=== PATIENT | male | born 1965 | race Two or more races ===

== ENCOUNTER 2017-12-09 20:56 | Inpatient (IN) | payer OTHER ==
[2017-12-09] MEDS ORDERED: LORAZEPAM 0.5 MG TAB PO (21:30)
[2017-12-09] MEDS ORDERED: DOCUSATE SODIUM 100 MG CAP PO (21:30)
[2017-12-09] MEDS ORDERED: NICOTINE POLACRILEX 2 MG GUM BUCCAL (21:30)
[2017-12-09] MEDS ORDERED: ZOLPIDEM 5 MG TAB PO (21:30)
[2017-12-09] MEDS ORDERED: BISACODYL (EC) 5 MG TAB PO (21:30)
[2017-12-09] MEDS ORDERED: ALBUTEROL/IPRATROPIUM (NEB) 3 ML AMP HHN (21:30)
[2017-12-09] MEDS ORDERED: ONDANSETRON 4 MG INJ IV (21:30)
[2017-12-09] MEDS ORDERED: morphine 2 MG INJ IV ×4 (21:30→23:00)
[2017-12-09] MEDS ORDERED: HYDROCODONE/APAP (5/325) TAB PO (21:30)
[2017-12-09] MEDS ORDERED: NACL 0.9% 3 ML SYG IV (21:30)
[2017-12-09 22:29] LABS: CREATINE KINASE 130 IU/L (23-200)
[2017-12-09] MEDS ORDERED: GLUCOSE GEL 15 GRAM TUBE PO ×2 (22:30)
[2017-12-09] MEDS ORDERED: GLUCOSE GEL 15 GRAM TUBE BUCCAL (22:30)
[2017-12-09] MEDS ORDERED: DEXTROSE 50% 50 ML SYRINGE IV ×2 (22:30)
[2017-12-09] MEDS ORDERED: GLUCAGON 1 MG INJ IM (22:30)
[2017-12-09 22:39] LABS: B-TYPE NATRIURETIC PEPTIDE 28 PG/ML (0-125)
[2017-12-09 22:41] LABS: CK INDEX 0.5; CK-MB 0.61 ng/ml (0.0-2.4); TROPONIN-I 0.031 ng/ml (0.00-0.12)
[2017-12-09] MEDS: clonAZEPAM 0.5 MG TAB PO (23:04)
[2017-12-09] MEDS: BUMETANIDE 1 MG INJ IV (23:30)
[2017-12-09] MEDS: METOCLOPRAMIDE 10 MG TAB PO (23:30)
[2017-12-09] MEDS: VENLAFAXINE (XR) 75 MG CAP PO (23:30)
[2017-12-10] MEDS: ACCU-CHEK XX (02:00)
[2017-12-10 03:33] LABS: CREATINE KINASE 120 IU/L (23-200)
[2017-12-10 03:46] LABS: CK INDEX 0.6; TROPONIN-I 0.061 ng/ml (0.00-0.12)
[2017-12-10 03:57] LABS: CK-MB 0.71 ng/ml (0.0-2.4)
[2017-12-10 05:54] LABS: ADD MAN DIFF? NO
[2017-12-10 05:59] LABS: BASOPHILS % 0.4 % (0.0-2.0); EOSINOPHILS # 0.3 10^3/ul (0.0-0.5); HEMATOCRIT 46.2 % (42.0-52.0); HEMOGLOBIN 15.8 g/dl (14.0-18.0); LYMPHOCYTES % 32.8 % (15.0-51.0); MEAN CORPUSCULAR HGB CONC 34.2 g/dl (32.0-37.0); MEAN CORPUSCULAR VOLUME 84.9 fl (82.0-101.0); MONOCYTE # 0.7 10^3/ul (0.3-0.9); MONOCYTES % 7.3 % (0.0-11.0); NEUTROPHIL # 5.1 10^3/ul (1.6-7.5); NEUTROPHILS % 56.2 % (39.0-77.0); PLATELET COUNT 250 10^3/UL (140-415); RED BLOOD COUNT 5.44 10^6/ul (4.70-6.10); RED CELL DISTRIBUTION WIDTH 11.7 % (11.5-14.5)
[2017-12-10 05:59] LABS: WHITE BLOOD COUNT 9.1 10^3/ul (4.8-10.8)
[2017-12-10] MEDS ORDERED: PANTOPRAZOLE 40 MG INJ IV (06:00)
[2017-12-10] MEDS: METOCLOPRAMIDE 10 MG TAB PO ×3 (06:04→21:48)
[2017-12-10] MEDS: PANTOPRAZOLE (EC) 40 MG TAB PO (06:04)
[2017-12-10 06:16] LABS: MAGNESIUM 1.8 mg/dl (1.7-2.5)
[2017-12-10 06:23] LABS: HEMOGLOBIN A1C 10.1 % (0-5.9)
[2017-12-10 06:38] LABS: ALANINE AMINOTRANSFERASE 55 IU/L (13-69); ALBUMIN 4.5 g/dl (3.3-4.9); ALBUMIN/GLOBULIN RATIO 1.55; ALKALINE PHOSPHATASE 68 IU/L (42-121); ANION GAP 15 (8-16); ASPARTATE AMINO TRANSFERASE 49 IU/L (15-46); BLOOD UREA NITROGEN 12 mg/dl (7-20); CALCIUM 9.4 mg/dl (8.4-10.2); CARBON DIOXIDE 29 mmol/L (21-31); CHLORIDE 102 mmol/L (97-110); CHOL/HDL RATIO 8.1 RATIO; CHOLESTEROL 237 mg/dl (100-200); CREATININE 0.65 mg/dl (0.61-1.24); GLUCOSE 182 mg/dl (70-220); HDL CHOLESTEROL 29 mg/dl (28-71); LDL CHOLESTEROL,CALCULATED 123 mg/dl; POTASSIUM 3.9 mmol/L (3.5-5.1); SODIUM 142 mmol/L (135-144); TOTAL PROTEIN 7.4 g/dl (6.1-8.1); TRIGLYCERIDES 423 mg/dl (0-149)
[2017-12-10 06:55] LABS: THYROID STIMULATING HORMONE 0.789 MIU/L (0.465-4.680)
[2017-12-10] MEDS ORDERED: INSULIN ASPART [NOVOLOG] 3 ML PEN SC (07:35)
[2017-12-10] MEDS: INSULIN ASPART [NOVOLOG] 3 ML PEN SC ×4 (07:35→22:20)
[2017-12-10] MEDS ORDERED: ENOXAPARIN 40 MG/0.4 ML SYG SC (09:00)
[2017-12-10] MEDS: CALCIUM CARBONATE 500 MG CHEW TAB PO ×4 (09:10→21:48)
[2017-12-10] MEDS: VENLAFAXINE (XR) 75 MG CAP PO (09:10)
[2017-12-10] MEDS: LOSARTAN 25 MG TAB PO (09:11)
[2017-12-10] MEDS: ASPIRIN (EC) 325 MG TAB PO (09:22)
[2017-12-10] MEDS: NICOTINE (21 MG/24 HR) PATCH TRANSDERM (09:23)
[2017-12-10] MEDS ORDERED: HEPARIN 1000 UNITS/ML 10 ML INJ IV (09:30)
[2017-12-10] MEDS: CLOPIDOGREL 75 MG TAB PO (09:51)
[2017-12-10] MEDS: SALMETEROL/FLUTICASONE 250/50 INHA INH ×2 (09:53→22:14)
[2017-12-10 10:27] LABS: ADD UMIC YES; UR ASCORBIC ACID NEGATIVE (NEGATIVE); UR BILIRUBIN (Dip) NEGATIVE (NEGATIVE); UR BLOOD (Dip) NEGATIVE (NEGATIVE); UR CALCIUM OXALATE CRYSTAL FEW /HPF (NONE SEEN); UR CLARITY CLEAR (CLEAR); UR COLOR YELLOW (YELLOW); UR GLUCOSE (Dip) NEGATIVE (NEGATIVE); UR KETONES (Dip) NEGATIVE (NEGATIVE); UR LEUKOCYTE ESTERASE (Dip) NEGATIVE Leu/ul (NEGATIVE); UR NITRITE (Dip) NEGATIVE (NEGATIVE); UR RBC 0 /HPF (0-5); UR SPECIFIC GRAVITY (Dip) 1.017 (1.003-1.030); UR TOTAL PROTEIN (Dip) 2+ mg/dl (NEGATIVE); UR UROBILINOGEN (Dip) NEGATIVE (NEGATIVE); UR WBC 1 /HPF (0-5)
[2017-12-10 10:41] LABS: ADD MAN DIFF? NO
[2017-12-10 10:46] LABS: WHITE BLOOD COUNT 11.2 10^3/ul (4.8-10.8)
[2017-12-10 10:46] LABS: BASOPHILS % 0.3 % (0.0-2.0); EOSINOPHILS # 0.2 10^3/ul (0.0-0.5); EOSINOPHILS % 1.7 % (0.0-7.0); HEMATOCRIT 48.1 % (42.0-52.0); HEMOGLOBIN 16.4 g/dl (14.0-18.0); LYMPHOCYTES # 2.9 10^3/ul (0.8-2.9); LYMPHOCYTES % 25.8 % (15.0-51.0); MEAN CORPUSCULAR HGB CONC 34.1 g/dl (32.0-37.0); MEAN PLATELET VOLUME 11.1 fl (7.4-10.4); MONOCYTE # 0.6 10^3/ul (0.3-0.9); MONOCYTES % 5.3 % (0.0-11.0); NEUTROPHIL # 7.4 10^3/ul (1.6-7.5); NEUTROPHILS % 66.6 % (39.0-77.0); PLATELET COUNT 269 10^3/UL (140-415); RED BLOOD COUNT 5.66 10^6/ul (4.70-6.10); RED CELL DISTRIBUTION WIDTH 11.9 % (11.5-14.5)
[2017-12-10 11:01] LABS: AMPHETAMINE/METHAMPHETAMINE Negative (NEGATIVE); BARBITURATES Negative (NEGATIVE); BENZODIAZEPINES Negative (NEGATIVE); CANNABINOIDS Negative (NEGATIVE); COCAINE Negative (NEGATIVE); OPIATES Negative (NEGATIVE)
[2017-12-10 11:07] LABS: CREATINE KINASE 107 IU/L (23-200)
[2017-12-10 11:18] LABS: CK INDEX 0.5; TROPONIN-I 0.041 ng/ml (0.00-0.12)
[2017-12-10 11:28] LABS: INR 0.89; PROTIME 12.1 Sec (11.9-14.9); PT RATIO 0.9
[2017-12-10 11:29] LABS: PARTIAL THROMBOPLASTIN TIME 28.5 Sec (25.0-35.0)
[2017-12-10 12:39] LABS: MAGNESIUM 1.9 mg/dl (1.7-2.5)
[2017-12-10] MEDS: HEPARIN 1000 UNITS/ML 10 ML INJ IV (13:32)
[2017-12-10] MEDS: HEPARIN 25000 UNITS/250 ML 250 ML IV (13:43)
[2017-12-10] MEDS ORDERED: LIDOCAINE 1% (MDV) 20 ML INJ (16:32)
[2017-12-10] MEDS ORDERED: VERAPAMIL 5 MG INJ (16:32)
[2017-12-10] MEDS ORDERED: IODIXANOL LOCM 100 ML BTL ×3 (16:32→18:58)
[2017-12-10] MEDS ORDERED: HEPARIN 1000 UNITS/ML 10 ML INJ (16:32)
[2017-12-10] MEDS ORDERED: NITROGLYCERIN (IC) 100 MCG/ML INJ (16:32)
[2017-12-10] MEDS ORDERED: MIDAZOLAM 1 MG/ML 2 ML INJ ×2 (16:34→18:28)
[2017-12-10] MEDS ORDERED: FENTAnyl 50 MCG/ML VIAL ×2 (16:34→18:29)
[2017-12-10] MEDS ORDERED: CLOPIDOGREL 300 MG TAB (18:38)
[2017-12-10] MEDS ORDERED: BIVALIRUDIN 250MG /NS 50 ML 50 ML IVPB (18:44)
[2017-12-10] MEDS: morphine 2 MG INJ IV (20:24)
[2017-12-10] MEDS: clonAZEPAM 0.5 MG TAB PO (21:47)
[2017-12-10] MEDS: ATORVASTATIN 80 MG TAB PO (21:48)
[2017-12-10] MEDS: MONTELUKAST 10 MG TAB PO (21:52)
[2017-12-10] MEDS: INSULIN GLARGINE [LANtus] 3 ML PEN SC (22:15)
[2017-12-11] MEDS: morphine 2 MG INJ IV (02:25)
[2017-12-11] MEDS: ACCU-CHEK XX (02:34)
[2017-12-11] MEDS: PANTOPRAZOLE (EC) 40 MG TAB PO (05:01)
[2017-12-11] MEDS: METOCLOPRAMIDE 10 MG TAB PO ×3 (05:01→22:23)
[2017-12-11 06:04] LABS: ADD MAN DIFF? NO
[2017-12-11 06:21] LABS: BASOPHILS % 0.2 % (0.0-2.0); EOSINOPHILS # 0.2 10^3/ul (0.0-0.5); EOSINOPHILS % 1.5 % (0.0-7.0); HEMOGLOBIN 15.5 g/dl (14.0-18.0); LYMPHOCYTES # 2.3 10^3/ul (0.8-2.9); LYMPHOCYTES % 22.4 % (15.0-51.0); MEAN CORPUSCULAR HEMOGLOBIN 29.4 pg (29.0-33.0); MEAN CORPUSCULAR HGB CONC 35.2 g/dl (32.0-37.0); MEAN CORPUSCULAR VOLUME 83.5 fl (82.0-101.0); MEAN PLATELET VOLUME 11.1 fl (7.4-10.4); MONOCYTE # 0.6 10^3/ul (0.3-0.9); NEUTROPHIL # 7.3 10^3/ul (1.6-7.5); NEUTROPHILS % 69.5 % (39.0-77.0); PLATELET COUNT 266 10^3/UL (140-415); RED BLOOD COUNT 5.27 10^6/ul (4.70-6.10); RED CELL DISTRIBUTION WIDTH 11.7 % (11.5-14.5)
[2017-12-11 06:21] LABS: WHITE BLOOD COUNT 10.4 10^3/ul (4.8-10.8)
[2017-12-11 06:31] LABS: CREATINE KINASE 193 IU/L (23-200)
[2017-12-11 06:34] LABS: INR 0.91; PROTIME 12.3 Sec (11.9-14.9)
[2017-12-11 06:44] LABS: CK INDEX 2.8
[2017-12-11 06:49] LABS: ALANINE AMINOTRANSFERASE 67 IU/L (13-69); ALBUMIN 4.2 g/dl (3.3-4.9); ALKALINE PHOSPHATASE 74 IU/L (42-121); ANION GAP 20 (8-16); ASPARTATE AMINO TRANSFERASE 65 IU/L (15-46); BILIRUBIN,INDIRECT 0.2 mg/dl (0-1.1); BILIRUBIN,TOTAL 0.2 mg/dl (0.2-1.3); BLOOD UREA NITROGEN 11 mg/dl (7-20); CALCIUM 9.3 mg/dl (8.4-10.2); CARBON DIOXIDE 25 mmol/L (21-31); CHLORIDE 100 mmol/L (97-110); CREATININE 0.66 mg/dl (0.61-1.24); GLUCOSE 198 mg/dl (70-220); MAGNESIUM 1.9 mg/dl (1.7-2.5); POTASSIUM 3.7 mmol/L (3.5-5.1); SODIUM 141 mmol/L (135-144); TOTAL PROTEIN 7.7 g/dl (6.1-8.1); TROPONIN-I 0.814 ng/ml (0.00-0.12)
[2017-12-11 06:50] LABS: B-TYPE NATRIURETIC PEPTIDE 22 PG/ML (0-125)
[2017-12-11 07:04] LABS: FREE T4 (FREE THYROXINE) 1.05 ng/dl (0.64-1.79)
[2017-12-11] MEDS ORDERED: ACETAMINOPHEN 325 MG TAB PO (07:30)
[2017-12-11] MEDS ORDERED: OXYCODONE/ACETAMINOPHEN (5/325) TAB PO (07:30)
[2017-12-11] MEDS ORDERED: ONDANSETRON 4 MG INJ IV (07:30)
[2017-12-11] MEDS ORDERED: ZOLPIDEM 5 MG TAB PO (07:30)
[2017-12-11] MEDS ORDERED: NITROGLYCERIN (SL) 0.4 MG TAB SL (07:30)
[2017-12-11] MEDS ORDERED: morphine 2 MG INJ IV (07:30)
[2017-12-11] MEDS ORDERED: DIAZEPAM 2 MG TAB PO (07:30)
[2017-12-11] MEDS: CLOPIDOGREL 75 MG TAB PO (08:24)
[2017-12-11] MEDS: FAMOTIDINE 20 MG TAB PO ×2 (08:24→22:22)
[2017-12-11] MEDS: ASPIRIN (EC) 81 MG TAB PO (08:24)
[2017-12-11] MEDS: CALCIUM CARBONATE 500 MG CHEW TAB PO ×4 (08:24→22:22)
[2017-12-11] MEDS: LOSARTAN 25 MG TAB PO (08:25)
[2017-12-11] MEDS: DOCUSATE SODIUM 100 MG CAP PO ×3 (08:25→22:23)
[2017-12-11] MEDS: SOD CHLORIDE 0.9% 1,000 ML IV (08:25)
[2017-12-11] MEDS: INSULIN ASPART [NOVOLOG] 3 ML PEN SC ×6 (08:28→22:31)
[2017-12-11] MEDS: SALMETEROL/FLUTICASONE 250/50 INHA INH ×2 (08:28→22:38)
[2017-12-11] MEDS: NICOTINE (21 MG/24 HR) PATCH TRANSDERM (08:29)
[2017-12-11] MEDS: ISOSORBIDE DINITRATE 20 MG TAB PO ×3 (08:33→22:22)
[2017-12-11] MEDS: VENLAFAXINE (XR) 75 MG CAP PO (09:12)
[2017-12-11] MEDS: LINAGLIPTIN 5 MG TABLET PO (12:12)
[2017-12-11] MEDS: ENOXAPARIN 40 MG/0.4 ML SYG SC (12:13)
[2017-12-11] MEDS: INSULIN GLARGINE [LANtus] 3 ML PEN SC (21:00)
[2017-12-11] MEDS: MONTELUKAST 10 MG TAB PO (22:21)
[2017-12-11] MEDS: ATORVASTATIN 80 MG TAB PO (22:22)
[2017-12-11] MEDS: clonAZEPAM 0.5 MG TAB PO (22:23)
[2017-12-12] MEDS: ACCU-CHEK XX (02:00)
[2017-12-12] MEDS: METOCLOPRAMIDE 10 MG TAB PO ×3 (05:22→22:41)
[2017-12-12] MEDS: INSULIN ASPART [NOVOLOG] 3 ML PEN SC ×7 (08:00→22:44)
[2017-12-12] MEDS: LOSARTAN 50 MG TAB PO (08:35)
[2017-12-12] MEDS: DOCUSATE SODIUM 100 MG CAP PO ×2 (08:35→22:41)
[2017-12-12] MEDS: ISOSORBIDE DINITRATE 20 MG TAB PO ×3 (08:35→22:41)
[2017-12-12] MEDS: VENLAFAXINE (XR) 75 MG CAP PO (08:35)
[2017-12-12] MEDS: LINAGLIPTIN 5 MG TABLET PO (08:36)
[2017-12-12] MEDS: ENOXAPARIN 40 MG/0.4 ML SYG SC (08:36)
[2017-12-12] MEDS: FAMOTIDINE 20 MG TAB PO ×2 (08:36→22:41)
[2017-12-12] MEDS: CALCIUM CARBONATE 500 MG CHEW TAB PO ×4 (08:36→22:40)
[2017-12-12] MEDS: CLOPIDOGREL 75 MG TAB PO (08:40)
[2017-12-12] MEDS: ASPIRIN (EC) 81 MG TAB PO (08:40)
[2017-12-12] MEDS: NICOTINE (21 MG/24 HR) PATCH TRANSDERM (08:41)
[2017-12-12] MEDS: SALMETEROL/FLUTICASONE 250/50 INHA INH ×2 (09:11→23:11)
[2017-12-12 09:50] LABS: ADD MAN DIFF? NO
[2017-12-12 09:52] LABS: WHITE BLOOD COUNT 9.9 10^3/ul (4.8-10.8)
[2017-12-12 09:52] LABS: BASOPHIL # 0.1 10^3/ul (0.0-0.1); BASOPHILS % 0.5 % (0.0-2.0); EOSINOPHILS # 0.2 10^3/ul (0.0-0.5); EOSINOPHILS % 1.9 % (0.0-7.0); HEMOGLOBIN 15.4 g/dl (14.0-18.0); LYMPHOCYTES # 2.3 10^3/ul (0.8-2.9); LYMPHOCYTES % 23.6 % (15.0-51.0); MEAN CORPUSCULAR HEMOGLOBIN 28.8 pg (29.0-33.0); MEAN CORPUSCULAR HGB CONC 34.2 g/dl (32.0-37.0); MEAN CORPUSCULAR VOLUME 84.1 fl (82.0-101.0); MEAN PLATELET VOLUME 10.9 fl (7.4-10.4); MONOCYTE # 0.6 10^3/ul (0.3-0.9); MONOCYTES % 6.4 % (0.0-11.0); NEUTROPHIL # 6.7 10^3/ul (1.6-7.5); NEUTROPHILS % 67.2 % (39.0-77.0); PLATELET COUNT 267 10^3/UL (140-415); RED BLOOD COUNT 5.35 10^6/ul (4.70-6.10); RED CELL DISTRIBUTION WIDTH 11.6 % (11.5-14.5)
[2017-12-12 10:11] LABS: INR 0.89; PROTIME 12.1 Sec (11.9-14.9); PT RATIO 0.9
[2017-12-12 10:13] LABS: CREATINE KINASE 172 IU/L (23-200)
[2017-12-12 10:19] LABS: ALANINE AMINOTRANSFERASE 76 IU/L (13-69); ALBUMIN 4.4 g/dl (3.3-4.9); ALBUMIN/GLOBULIN RATIO 1.41; ALKALINE PHOSPHATASE 75 IU/L (42-121); ANION GAP 18 (8-16); ASPARTATE AMINO TRANSFERASE 67 IU/L (15-46); BILIRUBIN,INDIRECT 0.3 mg/dl (0-1.1); BILIRUBIN,TOTAL 0.3 mg/dl (0.2-1.3); BLOOD UREA NITROGEN 14 mg/dl (7-20); CALCIUM 9.7 mg/dl (8.4-10.2); CARBON DIOXIDE 27 mmol/L (21-31); CHLORIDE 100 mmol/L (97-110); CREATININE 0.72 mg/dl (0.61-1.24); GLUCOSE 279 mg/dl (70-220); MAGNESIUM 1.8 mg/dl (1.7-2.5); POTASSIUM 4.1 mmol/L (3.5-5.1); SODIUM 141 mmol/L (135-144); TOTAL PROTEIN 7.5 g/dl (6.1-8.1)
[2017-12-12 10:29] LABS: CK INDEX 1.4; CK-MB 2.38 ng/ml (0.0-2.4)
[2017-12-12] MEDS ORDERED: IODIXANOL LOCM 100 ML BTL (16:16)
[2017-12-12] MEDS ORDERED: LIDOCAINE 1% (MDV) 20 ML INJ ×2 (16:16)
[2017-12-12] MEDS ORDERED: MIDAZOLAM 1 MG/ML 2 ML INJ (17:10)
[2017-12-12] MEDS ORDERED: PROPOFOL 100 ML (17:11)
[2017-12-12] MEDS ORDERED: PROPOFOL 20 ML (17:11)
[2017-12-12] MEDS ORDERED: NITROGLYCERIN (IC) 100 MCG/ML INJ (17:19)
[2017-12-12] MEDS ORDERED: VERAPAMIL 5 MG INJ (17:19)
[2017-12-12] MEDS ORDERED: HEPARIN 1000 UNITS/ML 10 ML INJ (17:19)
[2017-12-12] MEDS ORDERED: FENTAnyl 50 MCG/ML VIAL (18:01)
[2017-12-12] MEDS ORDERED: HYDROmorphONE (0.2 MG/ML) 10ML SYG IV ×2 (18:30)
[2017-12-12] MEDS ORDERED: morphine (1 MG/ML) 10ML SYRINGE IV (18:30)
[2017-12-12] MEDS ORDERED: MEPERIDINE 25 MG INJ IV (18:30)
[2017-12-12] MEDS ORDERED: METOCLOPRAMIDE 10 MG INJ IV (18:30)
[2017-12-12] MEDS ORDERED: DIPHENHYDRAMINE 50 MG INJ IV (18:30)
[2017-12-12] MEDS ORDERED: FENTAnyl 50 MCG/ML VIAL IV ×2 (18:30)
[2017-12-12] MEDS ORDERED: ONDANSETRON 4 MG INJ IV (18:30)
[2017-12-12] MEDS: morphine (1 MG/ML) 10ML SYRINGE IV ×2 (18:54→19:08)
[2017-12-12] MEDS: SOD CHLORIDE 0.9% 1,000 ML IV (19:10)
[2017-12-12] MEDS: ATORVASTATIN 80 MG TAB PO (22:41)
[2017-12-12] MEDS: INSULIN GLARGINE [LANtus] 3 ML PEN SC (23:09)
[2017-12-12] MEDS: clonAZEPAM 0.5 MG TAB PO ×2 (23:10→23:15)
[2017-12-12] MEDS: MONTELUKAST 10 MG TAB PO (23:13)
[2017-12-13] MEDS: ACCU-CHEK XX (02:11)
[2017-12-13] MEDS: INSULIN GLARGINE [LANtus] 3 ML PEN SC (02:17)
[2017-12-13 05:21] LABS: ADD MAN DIFF? NO
[2017-12-13 05:26] LABS: BASOPHILS % 0.4 % (0.0-2.0); EOSINOPHILS # 0.2 10^3/ul (0.0-0.5); EOSINOPHILS % 2.3 % (0.0-7.0); HEMATOCRIT 39.2 % (42.0-52.0); HEMOGLOBIN 13.5 g/dl (14.0-18.0); LYMPHOCYTES # 2.3 10^3/ul (0.8-2.9); LYMPHOCYTES % 25.6 % (15.0-51.0); MEAN CORPUSCULAR HGB CONC 34.4 g/dl (32.0-37.0); MEAN CORPUSCULAR VOLUME 84.3 fl (82.0-101.0); MONOCYTE # 0.7 10^3/ul (0.3-0.9); MONOCYTES % 7.8 % (0.0-11.0); NEUTROPHIL # 5.7 10^3/ul (1.6-7.5); NEUTROPHILS % 63.7 % (39.0-77.0); PLATELET COUNT 239 10^3/UL (140-415); RED BLOOD COUNT 4.65 10^6/ul (4.70-6.10); RED CELL DISTRIBUTION WIDTH 11.8 % (11.5-14.5)
[2017-12-13] MEDS: METOCLOPRAMIDE 10 MG TAB PO ×2 (05:42→14:19)
[2017-12-13 05:46] LABS: ALANINE AMINOTRANSFERASE 73 IU/L (13-69); ALBUMIN 3.5 g/dl (3.3-4.9); ALBUMIN/GLOBULIN RATIO 1.45; ALKALINE PHOSPHATASE 63 IU/L (42-121); ANION GAP 16 (8-16); ASPARTATE AMINO TRANSFERASE 63 IU/L (15-46); BILIRUBIN,INDIRECT 0.1 mg/dl (0-1.1); BILIRUBIN,TOTAL 0.1 mg/dl (0.2-1.3); BLOOD UREA NITROGEN 12 mg/dl (7-20); CALCIUM 9.4 mg/dl (8.4-10.2); CARBON DIOXIDE 29 mmol/L (21-31); CHLORIDE 100 mmol/L (97-110); CREATININE 0.93 mg/dl (0.61-1.24); GLUCOSE 293 mg/dl (70-220); POTASSIUM 4.6 mmol/L (3.5-5.1); SODIUM 140 mmol/L (135-144); TOTAL PROTEIN 5.9 g/dl (6.1-8.1)
[2017-12-13 06:06] LABS: CREATINE KINASE 163 IU/L (23-200)
[2017-12-13 06:18] LABS: CK INDEX 1.3
[2017-12-13] MEDS: INSULIN ASPART [NOVOLOG] 3 ML PEN SC ×4 (08:42→11:30)
[2017-12-13] MEDS: CALCIUM CARBONATE 500 MG CHEW TAB PO ×2 (08:45→12:33)
[2017-12-13] MEDS: ISOSORBIDE DINITRATE 20 MG TAB PO ×2 (08:46→14:19)
[2017-12-13] MEDS: CLOPIDOGREL 75 MG TAB PO (08:46)
[2017-12-13] MEDS: DOCUSATE SODIUM 100 MG CAP PO (08:46)
[2017-12-13] MEDS: LINAGLIPTIN 5 MG TABLET PO (08:46)
[2017-12-13] MEDS: FAMOTIDINE 20 MG TAB PO (08:46)
[2017-12-13] MEDS: NICOTINE (21 MG/24 HR) PATCH TRANSDERM (08:47)
[2017-12-13] MEDS: ASPIRIN (EC) 81 MG TAB PO (08:47)
[2017-12-13] MEDS: SALMETEROL/FLUTICASONE 250/50 INHA INH (08:47)
[2017-12-13] MEDS: LOSARTAN 50 MG TAB PO (08:47)
[2017-12-13] MEDS: ENOXAPARIN 40 MG/0.4 ML SYG SC (08:56)
[2017-12-13] MEDS: VENLAFAXINE (XR) 75 MG CAP PO (10:11)
[2017-12-13] MEDS: ACETAMINOPHEN 325 MG TAB PO (12:32)
== END 2017-12-13 15:55 | disposition home or self-care (01) | DRG 247 ==
LOC: ICU 12-12 20:42 → MS3 20:56 → MS4 12-11 14:51 → ICU 12-10 20:00
PROC: 027034Z Dilation of Coronary Artery, One Artery with Drug-eluting Intraluminal Device, Percutaneous Approach (ICD-10-PCS; principal; 2017-12-10 17:30)
PROC: 02C03ZZ Extirpation of Matter from Coronary Artery, One Artery, Percutaneous Approach (ICD-10-PCS; 2017-12-10 17:30)
PROC: 4A023N7 Measurement of Cardiac Sampling and Pressure, Left Heart, Percutaneous Approach (ICD-10-PCS; 2017-12-10 17:30)
PROC: B211YZZ Fluoroscopy of Multiple Coronary Arteries using Other Contrast (ICD-10-PCS; 2017-12-10 17:30)
DX: I21.4 Non-ST elevation (NSTEMI) myocardial infarction (principal); E11.65 Type 2 diabetes mellitus with hyperglycemia; E66.9 Obesity, unspecified; I10 Essential (primary) hypertension; E78.5 Hyperlipidemia, unspecified; F41.9 Anxiety disorder, unspecified; F32.9 Major depressive disorder, single episode, unspecified; I25.10 Atherosclerotic heart disease of native coronary artery without angina pectoris; F17.200 Nicotine dependence, unspecified, uncomplicated; Z68.38 Body mass index [BMI] 38.0-38.9, adult; Z79.4 Long term (current) use of insulin; Z95.5 Presence of coronary angioplasty implant and graft
CPT/HCPCS: 71045; 80053; 80061; 80307; 81001; 82550; 82553; 82962; 83036; 83735; 83880; 84439; 84443; 84484; 85025; 85610; 85730; 87081; 93005; 93306; 93458; 97161; 97165